=== PATIENT | female | born 1995 | race Two or more races ===

== ENCOUNTER → 2024-10-05 | Outpatient (CLI) | payer MEDICAID, SELFPAY ==
--- NOTE | 2024-10-05 12:50 | XR_ITS ---
Examination: Cervical spine 3 views TECHNIQUE: AP, lateral, coned AP odontoid cervical spine 3 views Date and time: October 05, 2024 1313 hours INDICATIONS: Neck pain beginning one year ago. FINDINGS: Adequate alignment cervical vertebral bodies. No cervical fracture No cervical disc narrowing. Intact odontoid IMPRESSION: No cervical fracture No cervical disc narrowing
== END | disposition home or self-care (01) ==
LOC: CDIM 12:36
PROVIDERS: PCP Physician Assistant; Referring Provider Nurse Practitioner Family; Visit Provider Nurse Practitioner Family
DX: M54.2 Cervicalgia (principal)
CPT/HCPCS: 72040

== ENCOUNTER → 2024-11-24 | Outpatient (CLI) | payer MEDICAID, SELFPAY ==
--- NOTE | 2024-11-24 | XR_ITS ---
Examination: Foot, right, 3 views Technique: AP, oblique, lateral views foot, 3 views Date and time of exam: November 24, 2024 1321 hours INDICATIONS: Right heel pain beginning 3 days ago. FINDINGS: Normal bone density. No fracture or dislocation. Pes planus. No plantar posterior bony calcaneal spurs. IMPRESSION: Pes planus. No plantar posterior bony calcaneal spurs
== END | disposition home or self-care (01) ==
PROVIDERS: PCP Nurse Practitioner Primary Care; Referring Provider Nurse Practitioner Primary Care; Visit Provider Nurse Practitioner Primary Care
DX: M21.41 Flat foot [pes planus] (acquired), right foot (principal)
CPT/HCPCS: 73630